=== PATIENT | female | born 1980 | race Caucasian/White ===

== ENCOUNTER 2021-12-01 11:40 | Emergency (ER) | payer SELFPAY ==
[~2021-12-01] VITALS: Ht 165.1 cm; Wt 81.8 kg
[2021-12-01 12:39] LABS: BILIRUBIN,URINE NEGATIVE (NEG); CLARITY,URINE HAZY; COLOR,URINE YELLOW; NITRITE,URINE NEGATIVE (NEG); PROTEIN,URINE 30 mg/dL (NEG-TRACE); UROBILINOGEN,URINE 0.2 mg/dL (0.2 mg/dL)
[2021-12-01 12:41] LABS: BACTERIA,URINE 0 /HPF (0-FEW)
[2021-12-01] MEDS ORDERED: cefTRIAXone IM 500 MG VIAL. IM ONE (13:00)
[2021-12-01 13:16] VITALS: BP 139/72
[2021-12-01] MEDS ORDERED: CEPH500T PO (13:31)
[2021-12-01] MEDS ORDERED: DOXY100C3 PO (13:31)
--- NOTE | 2021-12-01 13:32 | PHYS DOC ---
Past Medical History Past Medical History: No Pertinent History Past Surgical History: , Tubal ligation Smoking Status: Current Every Day Smoker Alcohol Use: Occasionally Drug Use: None General Adult EDM: Chief Complaint: SEXUALLY TRANSMITTED DISEASE HPI: HPI: Patient is a 41-year-old female that presents today with possible STI. Patient states that her boyfriend has been experiencing penile discharge and that she is also having some concern with some vaginal discharge and she is here for treatment of an STI. Patient states she has not had one in the past but her boyfriend has. Patient denies vaginal bleeding, dysuria, and abdominal pain. Patient does have a past medical history of a tubal ligation [place] in the past. Review of Systems: Review of Systems: Constitutional: Denies fever or chills. [] Eyes: Denies change in visual acuity. [] HENT: Denies nasal congestion or sore throat. [] Respiratory: Denies cough or shortness of breath. [] Cardiovascular: Denies chest pain or edema. [] GI: Denies abdominal pain, nausea, vomiting, bloody stools or diarrhea. [] /GAMING DIRECTOR: Vaginal discharge denies dysuria. [] Musculoskeletal: Denies back pain or joint pain. [] Integument: Denies rash. [] Neurologic: Denies headache, focal weakness or sensory changes. [] Endocrine: Denies polyuria or polydipsia. [] Lymphatic: Denies swollen glands. [] Psychiatric: Denies depression or anxiety. [] Heart Score: C/O Chest Pain: N/A Risk Factors: Risk Factors: DM, Current or recent (<one month) smoker, HTN, HLP, family history of CAD, obesity. Risk Scores: Score 0 - 3: 2.5% MACE over next 6 weeks - Discharge Home Score 4 - 6: 20.3% MACE over next 6 weeks - Admit for Clinical Observation Score 7 - 10: 72.7% MACE over next 6 weeks - Early Invasive Strategies Current Medications: Current Medications Medications (Trade) Dose Ordered Sig/Adela Start Time Stop Time Status Last Admin Dose Admin Ceftriaxone Sodium (Rocephin Im) 500 mg 1X ONCE 12/01/21 13:00 12/01/21 13:01 DC 12/01/21 13:04 500 MG Allergies: Allergies: Allergies Coded Allergies Type Severity Reaction Last Updated Verified No Known Drug Allergies 12/01/21 No Physical Exam: PE: Constitutional: Well developed, well nourished, no acute distress, non-toxic appearance. [] HENT: Normocephalic, atraumatic, bilateral external ears normal, oropharynx moist, no oral exudates, nose normal. [] Eyes: PERRLA, EOMI, conjunctiva normal, no discharge. [] Neck: Normal range of motion, no tenderness, supple, no stridor. [] Cardiovascular:Heart rate regular rhythm, no murmur [] Lungs & Thorax: Bilateral breath sounds clear to auscultation [] Abdomen: Bowel sounds normal, soft, no tenderness, no masses, no pulsatile masses. [] Skin: Warm, dry, no erythema, no rash. [] Back: No tenderness, no CVA tenderness. [] Extremities: No tenderness, no cyanosis, no clubbing, ROM intact, no edema. [] Neurologic: Alert and oriented X 3, normal motor function, normal sensory function, no focal deficits noted. [] Psychologic: Affect normal, judgement normal, mood normal. [] Current Patient Data: Labs: Laboratory Tests Test 12/01/21 12:02 12/01/21 12:13 Urine Collection Type Unknown Urine Color Yellow Urine Clarity Hazy Urine pH 7.0 (<5.0-8.0) Urine Specific [place] 1.025 (1.000-1.030) Urine Protein 30 mg/dL (NEG-TRACE) Urine Glucose (UA) Negative mg/dL (NEG) Urine Ketones (Stick) Negative mg/dL (NEG) Urine Blood Large (NEG) Urine Nitrite Negative (NEG) Urine Bilirubin Negative (NEG) Urine Urobilinogen Dipstick 0.2 mg/dL (0.2 mg/dL) Urine Leukocyte Esterase Small (NEG) Urine RBC 3-5 /HPF (0-2) Urine WBC 5-10 /HPF (0-4) Urine Squamous Epithelial Cells Occ /LPF Urine Bacteria 0 /HPF (0-FEW) Urine Mucus Slight /LPF POC Urine HCG, Qualitative Hcg negative (Negative) Microbiology 12/01/21 Wet Prep - Final, Complete Vital Signs: Vital Signs Date Time Temp Pulse Resp B/P (MAP) Pulse Ox O2 Delivery O2 Flow Rate FiO2 12/01/21 13:16 91 20 139/72 (94) 98 Room Air 12/01/21 12:05 97.7 97.7 EKG: EKG: [] Radiology/Procedures: Radiology/Procedures: [] Course & Med Decision Making: Course & Med Decision Making Pertinent Labs and Imaging studies reviewed. (See chart for details) Due to the patient's partner being highly suspicious for STI we will treat patient with ceftriaxone here in the emergency department will also write a prescription for doxycycline, did note in her urine that she has a urinary tract infection we will treat her for that as well with cephalexin. Patient is instructed to avoid sexual contact for the next 7 days, and to follow-up with her primary care or one of the clinics provided in the discharge for further follow-up of this. Dragon Disclaimer: Dragon Disclaimer: This electronic medical record was generated, in whole or in part, using a voice recognition dictation system. Departure Departure Impression: Primary Impression: Sexually transmissible disease Additional Impression: Urinary tract infection Qualified Codes: N30.01 - Acute cystitis with hematuria Disposition: HOME / SELF CARE / HOMELESS Condition: STABLE Patient Instructions: Sexually Transmitted Disease, Urinary Tract Infection Additional Instructions: Doxycycline take 1 tablet twice daily for 7 full days for your sexually transmitted infection Cephalexin take 1 tablet twice daily for 7 full days for urinary tract infection No sexual contact or anything in your vagina for the next 7 days Tylenol and/or ibuprofen as needed for pain Follow-up with your primary care physician or one of the clinics provided for further management of your STIs and urinary tract infection. [facility] [address] [place] [address] [facility] [address] [place] [address] [facility] [address] [place] [address] [facility] [address] [place] [address] [facility] [address] [place] [address] [facility] [address] [place] [address] [facility] [address] [place] [address] [facility] [address] [place] [address] [facility] [address] [place] [address] [facility] [address] [place] [address] Scripts Doxycycline Hyclate (DOXYCYCLINE HYCLATE) 100 Mg Capsule 1 CAP PO BID, #14 CAP Prov: NEREIDA VALDOVINOS SENIOR PROJECT ACCOUNTANT 12/01/21 Cephalexin (CEPHALEXIN) 500 Mg Tablet 1 CAP PO BID for 7 Days, #14 CAP Prov: NEREIDA VALDOVINOS SENIOR PROJECT ACCOUNTANT 12/01/21 NEREIDA VALDOVINOS SENIOR PROJECT ACCOUNTANT Dec 01, 2021 13:32
[2021-12-04 18:09] LABS: GC PROBE Positive (Negative)
== END 2021-12-01 13:35 | disposition home or self-care (01) ==
LOC: ER 11:40
DX: A64 Unspecified sexually transmitted disease (principal); N30.01 Acute cystitis with hematuria; F17.200 Nicotine dependence, unspecified, uncomplicated; Z98.51 Tubal ligation status
CPT/HCPCS: 81001; 81025; 87086; 87491; 87591; 96372; 99283; J0696; Q0111